=== PATIENT | female | born 1990 | race Caucasian/White ===

== ENCOUNTER 2017-07-29 05:55 | Inpatient (IN) ==
[2017-07-29] MEDS ORDERED: MAG-AL + SIM ORAL LIQUID 30ml PO PRN (06:25)
[2017-07-29] MEDS ORDERED: LIDOCAINE 1% (10mg/ml) 2mL INJ PF SDV ID PRN (06:25)
[2017-07-29] MEDS ORDERED: CARBOPROST 250 MCG/ML INJECTION IM PRN (06:25)
[2017-07-29] MEDS ORDERED: ACETAMINOPHEN 500 MG TABLET PO PRN (06:25)
[2017-07-29] MEDS ORDERED: CALCIUM CARBONATE Chewable 500mg TABLET PO PRN (06:25)
[2017-07-29] MEDS ORDERED: METHYLERGONOVINE 0.2 MG/ML INJECTION IM PRN (06:25)
[2017-07-29] MEDS: LR 1,000 ML IV PRN ×3 (06:54→18:36)
[2017-07-29 07:31] VITALS: BMI 28.5
[2017-07-29] MEDS ORDERED: OXYTOCIN DRIP 30 UNIT/500 ML ML IV PRN (08:44)
[2017-07-29] MEDS: D5LR 1,000 ML IV PRN ×2 (08:58→17:51)
[2017-07-29] MEDS ORDERED: NALOXONE 0.4 MG/ML INJECTION IVP PRN (10:31)
[2017-07-29] MEDS ORDERED: ONDANSETRON 4 MG/2 ML INJECTION IVP PRN ×2 (10:31→20:10)
[2017-07-29] MEDS ORDERED: DiphenhydrAMINE 50 MG/ML INJECTION IVP PRN (10:31)
[2017-07-29] MEDS ORDERED: ROPIVACAINE 1% 10MG/ML INJ 200 MG, SUFentanil 50 MCG in NS 100 ML EPI PRN (10:31)
--- NOTE | 2017-07-29 10:31 | Anesthesia Preoperative Report ---
Anesthesia Epidural/Spinal Rec - Date and Time Date: 07/29/17 Preoperative Diagnosis: g1, p0, 41+4 weeks labor Procedure: Labor Epidural Plan: Epidural - Vital Signs Vital Signs: Temperature 97.8 F 07/29/17 06:57 Pulse Rate 91 07/29/17 06:57 Respiratory Rate 18 07/29/17 06:57 Blood Pressure 131/87 07/29/17 06:57 NPO since: mn /Para: P:0 Heart Rate: 135 - Medictaions & Allergies Inpatient Medications: Current Medications Acetaminophen (Tylenol) 500 - 1,000 mg PO Q4H PRN PRN Reason: Pain Al Hydroxide/Mg Hydroxide (Maalox Plus) 30 ml PO Q3H PRN PRN Reason: Indigestion Calcium Carbonate (Tums) 500 - 1,000 mg PO Q2H PRN PRN Reason: Indigestion Carboprost Tromethamine (Hemabate) 250 mcg IM O PRN PRN Reason: .Downtime Lactated Ringer's (Lactated Ringers) 1,000 mls @ 999 mls/hr IV .Q1H1M PRN Last Admin: 07/29/17 08:59 Dose: 999 mls/hr Dextrose/Lactated Ringer's (Dextrose 5%-Lactated Ringers) 1,000 mls @ 125 mls/ hr IV .Q8H PRN PRN Reason: Labor Last Admin: 07/29/17 08:58 Dose: 125 mls/hr Oxytocin (Pitocin Drip) 30 unit in 500 mls @ 2 mls/hr IV .Q24H PRN; Protocol PRN Reason: Induction/Augmentation Last Admin: 07/29/17 08:57 Dose: 2 mls/hr Lidocaine HCl (Xylocaine-Mpf 1% Vial) 0.2 mg ID O PRN PRN Reason: IV Start Methylergonovine Maleate (Methergine) 0.2 mg IM O PRN Misoprostol (Cytotec) 800 mcg IA ONCE PRN Allergies/Adverse Reactions: Allergies Allergy/AdvReac Type Severity Reaction Status Date / Time No Known Allergies Allergy Verified 06/27/17 14:19 - Home Medications Home Medications: Home Medications Medication Instructions Recorded Confirmed Type Vitamins DAILY 07/29/17 History - Medical History Gastrointestional: Reports: Gastroesophageal Reflux Disease ( induced) Neuro/Musculoskeletal: Reports: Depression (no current meds) Other History: Reports: Now - Surgical History HEENT Surgeries: Reports: Oral Surgery (broken jaw) Anesthesia Reactions: None Hx Family Anesthesia Reaction: No - Social History Smoking Status: Never smoker Second Hand Exposure: No Substance Use Type: does not use Alcohol Intake Frequency: does not drink Hx Chewing Tobacco Use: No - Pertinent Findings Lab Data: CBC and BMP 07/29/17 06:43 - Physical Exam Respiratory Exam: lungs clear, bilateral breath sounds equal Cardiovascular Exam: regular rate and rhythm, no murmur - Airway Assessment Mallampati Score: III TMD: 3 Fingerbreadths Neck Extension: fair Overall Assessment: may be difficult intubation (jaw surgery ) - ASA ASA Score: 2 - Discussion Discussion: Discussed risks/options/alternatives of anesthesia and questions answered. Patient consents. Nursing pain assessment noted. Attestation Statement: Prior to the delivery of any anesthetic medication, I examined the patient, developed the plan, obtained the patient's consent and discussed the risk and benefits of the procedure with the patient/guardian.
[2017-07-29] MEDS ORDERED: CEFAZOLIN 1 G INJECTION IVP ONE (19:03)
[2017-07-29] MEDS ORDERED: CITRIC ACID/SODIUM CITRATE 30ml PO ONE (19:03)
[2017-07-29] MEDS ORDERED: FAMOTIDINE PB 20 MG/50 ML BAG IV ONE (19:03)
[2017-07-29] MEDS ORDERED: AZITHROMYCIN IV 500 MG in NS 250ml 250 ML IV ONE (19:04)
[2017-07-29] MEDS: NOZIN NASAL SWAB NAS SCH (19:17)
[2017-07-29] MEDS ORDERED: FentaNYL 100 MCG/2 ML INJECTION ONE (19:27)
[2017-07-29] MEDS ORDERED: MORPHINE SULFATE PF 5mg/10ml INJ (Duramorph) ONE (19:27)
[2017-07-29] MEDS ORDERED: EPHEDRINE 50mg/ml INJECTION ONE (19:28)
[2017-07-29] MEDS ORDERED: LIDOCAINE 2%/EPI 1:200,000 20ml SDV PF ONE (19:28)
[2017-07-29] MEDS: CLINDAMYCIN PB 900 MG/50 ML BAG IV SCH (19:40)
[2017-07-29] MEDS ORDERED: GENTAMICIN PB 120 MG/100 ML BAG IV ONE (19:43)
[2017-07-29] MEDS ORDERED: GENTAMICIN - PHARMACY CONSULT MC ONE (19:45)
[2017-07-29] MEDS ORDERED: ONDANSETRON 4 MG/2 ML INJECTION ONE (19:50)
--- NOTE | 2017-07-29 20:09 | Anesthesia Preoperative Report ---
Anesthesia Preoperative Record - Date and Time Date: 07/29/17 Preoperative Diagnosis: Labor failure to progress Proposed Procedure: emergency csection NPO Since Date: 07/28/17 NPO Since Time: 23:00 Allergies/Adverse Reactions: Allergies Allergy/AdvReac Type Severity Reaction Status Date / Time No Known Allergies Allergy Verified 06/27/17 14:19 - Vital Signs Vital Signs: Temperature 97.8 F 07/29/17 06:57 Pulse Rate 91 07/29/17 06:57 Respiratory Rate 18 07/29/17 06:57 Blood Pressure 131/87 07/29/17 06:57 Height and Weight: Height 1.63 m Weight 75.3 kg Body Mass Index 28.5 - Medications Inpatient Medications: Current Medications Acetaminophen (Tylenol) 500 - 1,000 mg PO Q4H PRN PRN Reason: Pain Al Hydroxide/Mg Hydroxide (Maalox Plus) 30 ml PO Q3H PRN PRN Reason: Indigestion Calcium Carbonate (Tums) 500 - 1,000 mg PO Q2H PRN PRN Reason: Indigestion Carboprost Tromethamine (Hemabate) 250 mcg IM O PRN PRN Reason: .Downtime Cefazolin Sodium (Kefzol) 1 g IVP PREOP ONE Stop: 07/29/17 19:04 Last Admin: 07/29/17 19:11 Dose: 1 g Citric Acid/Sodium Citrate (Oracit) 30 ml PO ONCE ONE Stop: 07/29/17 19:04 Last Admin: 07/29/17 19:09 Dose: 30 ml Diphenhydramine HCl (Benadryl) 25 - 50 mg IVP Q3H PRN PRN Reason: Itching Gentamicin Sulfate (Pharmacy Consult - Gentamicin) 1 each MC O ONE Stop: 07/29/17 19:46 Lactated Ringer's (Lactated Ringers) 1,000 mls @ 999 mls/hr IV .Q1H1M PRN Last Admin: 07/29/17 18:36 Dose: 999 mls/hr Dextrose/Lactated Ringer's (Dextrose 5%-Lactated Ringers) 1,000 mls @ 125 mls/ hr IV .Q8H PRN PRN Reason: Labor Last Admin: 07/29/17 17:51 Dose: 125 mls/hr Oxytocin (Pitocin Drip) 30 unit in 500 mls @ 2 mls/hr IV .Q24H PRN; Protocol PRN Reason: Induction/Augmentation Last Admin: 07/29/17 08:57 Dose: 2 mls/hr Ropivacaine 200 mg/ Sufentanil Citrate 50 mcg/ Sodium Chloride 121 mls @ 0 mls/ hr EPI PRN PRN; As Directed PRN Reason: Protocol Famotidine/Sodium Chloride (Pepcid Premix) 20 mg in 50 mls @ 100 mls/hr IV O ONE Stop: 07/29/17 19:32 Last Admin: 07/29/17 19:09 Dose: 100 mls/hr Azithromycin 500 mg/ Sodium (Chloride) 250 mls @ 250 mls/hr IV O ONE Stop: 07/29/17 20:03 Last Admin: 07/29/17 19:27 Dose: 250 mls/hr Clindamycin Phosphate (Cleocin Premix) 900 mg in 50 mls @ 50 mls/hr IV Q8H NEVIN Gentamicin Sulfate/Sodium Chloride (Garamycin Premix) 120 mg in 100 mls @ 200 mls/hr IV PREOP ONE Stop: 07/29/17 20:12 Isopropyl Alcohol (Nozin Nasal Swab) 1 each KRISTAL 0600,1400,2200 NEVIN Last Admin: 07/29/17 19:17 Dose: 1 each Lidocaine HCl (Xylocaine-Mpf 1% Vial) 0.2 mg ID O PRN PRN Reason: IV Start Methylergonovine Maleate (Methergine) 0.2 mg IM O PRN Misoprostol (Cytotec) 800 mcg ME ONCE PRN Naloxone HCl (Narcan) 0.1 mg IVP Q2M PRN PRN Reason: Respiratory distress Ondansetron HCl (Zofran) 4 mg IVP Q6H PRN PRN Reason: Nausea &/or vomiting Home Medications: Home Medications Medication Instructions Recorded Confirmed Type Vitamins DAILY 07/29/17 History Is Patient on Beta Leonel?: No - Medical History Gastrointestional: Reports: Gastroesophageal Reflux Disease ( induced) Neuro/Musculoskeletal: Reports: Depression (no current meds) Other History: Reports: Now - Surgical History HEENT Surgeries: Reports: Oral Surgery (broken jaw) Anesthesia Reactions: None Hx Family Anesthesia Reaction: No - Social History Smoking Status: Never smoker Hx Chewing Tobacco Use: No Second Hand Exposure: No Substance Use Type: does not use Alcohol Intake Frequency: does not drink - Pertinent Findings Laboratory: CBC and BMP 07/29/17 06:43 - Physical Exam Respiratory Exam: Present: lungs clear, bilateral breath sounds equal Cardiovascular Exam: Present: regular rate and rhythm, no murmur - Airway Assessment Mallampati Score: III TMD: 3 Fingerbreadths Neck Extension: fair Overall Assessment: may be difficult intubation (jaw surgery ) - ASA ASA Score: 2 - Plan Regional/Trunk Block: Epidural (labor converted to surgical) - Discussion Discussion: Discussed risks/options/alternatives of anesthesia and questions answered. Patient consents. Nursing pain assessment noted. Attestation Statement: Prior to the delivery of any anesthetic medication, I examined the patient, developed the plan, obtained the patient's consent and discussed the risk and benefits of the procedure with the patient/guardian. - Additional Information Seen by Anesthesia: Yes
[2017-07-29] MEDS ORDERED: METOCLOPRAMIDE 10mg/2ml INJECTION IVP PRN (20:10)
[2017-07-29] MEDS ORDERED: NALOXONE 2 MG/2 ML INJECTION PFS IVP PRN (20:10)
[2017-07-29] MEDS ORDERED: NALBUPHINE 10 MG/ML INJECTION IVP PRN (20:10)
[2017-07-29] MEDS ORDERED: DiphenhydrAMINE 25 MG CAPSULE PO PRN (20:38)
[2017-07-29] MEDS ORDERED: HYDROCORTISONE 2.5% CREAM 30gm RECTALLY PRN (20:38)
[2017-07-29] MEDS ORDERED: SIMETHICONE 80 MG CHEWABLE TABLET PO PRN (20:38)
[2017-07-29] MEDS ORDERED: OXYTOCIN DRIP 30 UNIT/500 ML ML IV SCH (20:45)
[2017-07-29] MEDS ORDERED: TRANEXAMIC ACID 1,000 MG in NS 100 ML IV ONE (20:49)
[2017-07-29] MEDS: IBUPROFEN 800 MG TABLET PO PRN (22:13)
[2017-07-29] MEDS: SIMETHICONE 80 MG CHEWABLE TABLET PO SCH (23:41)
[2017-07-29] MEDS: D5LR 1,000 ML IV SCH (23:42)
[2017-07-30] MEDS: NOZIN NASAL SWAB NAS SCH ×4 (00:42→21:25)
[2017-07-30] MEDS: HYDROCODONE/APAP 5mg/325mg TABLET PO PRN ×4 (01:23→21:25)
[2017-07-30] MEDS ORDERED: CEFAZOLIN 1 G in NS 100 ML IV SCH ×2 (03:00→11:00)
[2017-07-30] MEDS: CLINDAMYCIN PB 900 MG/50 ML BAG IV SCH (03:47)
[2017-07-30] MEDS ORDERED: GENTAMICIN 120 MG in NS 100 ML IV SCH ×2 (04:15→13:00)
--- NOTE | 2017-07-30 08:46 | Anesthesia Postoperative Note ---
- Date and Time Date: 07/30/17 Time: 08:40 - Status Patient Participated in Evaluation: Patient Participated by Phone Vital Signs: Temperature 98.1 F 07/30/17 03:51 Pulse Rate 85 07/30/17 03:51 Respiratory Rate 16 07/30/17 03:51 Blood Pressure 123/69 07/30/17 03:51 Pulse Oximetry 95 07/30/17 03:51 Respiratory Function: Airway Patent Cardiovascular Function: Regular Pulse EKG: Sinus Rhythm Mental Status: Alert and Oriented Pain Intensity: 3 Hydration: Taking PO Fluids Complications During Recover: None Apparent - Follow-Up Instructions Instructions: Per Surgeon
[2017-07-30] MEDS: D5LR 1,000 ML IV SCH (08:50)
[2017-07-30] MEDS: IBUPROFEN 800 MG TABLET PO PRN ×2 (08:56→17:59)
[2017-07-30] MEDS: SIMETHICONE 80 MG CHEWABLE TABLET PO SCH ×4 (08:56→21:25)
[2017-07-30] MEDS: DOCUSATE CALCIUM 240 MG CAPSULE PO SCH (08:56)
--- NOTE | 2017-07-30 09:52 | OB/GYN Progress Note ---
OB-PP Progress Note - General PPD1 Maternal Group B Strep: Negative Maternal blood type: B+ Maternal Rubella Status: Immune - Subjective Date: 07/30/17 Lochia: Minimal Pain: controlled Voiding: arroyo still in place Nausea or Vomiting Present: No - Objective Vital Signs: Last Vital Signs Temp 97.8 F 07/30/17 07:51 Pulse 83 07/30/17 07:51 Resp 20 07/30/17 07:51 BP 128/70 07/30/17 07:51 Pulse Ox 100 07/30/17 07:51 T max 100.5. Afebrile since 2039 last PM. Urine Output: good General: alert and oriented Abdomen: fundus firm, non-tender, soft, non-distended Incision: clean, no erythema, dry, intact Extremities: non-tender Laboratory: Laboratory Results - last 24 hr 07/30/17 00:41 WBC 18.7 H D RBC 3.82 L Hgb 10.9 L Hct 32.6 L MCV 85.3 MCH 28.5 MCHC 33.4 RDW Std Deviation 37.6 Plt Count 180 MPV 11.0 - Assessment Assessment: Primary C/S, Chorioamnionitis - Plan Plan: routine care, antibiotics (Until afeb for 24 hours.)
--- NOTE | 2017-07-30 10:28 | Operative Note ---
DATE: 07/29/2017 PREOPERATIVE DIAGNOSES 1. 27-year-old 1 at 41 weeks 4 days gestational age. 2. Arrest of dilation and descent. 3. Chorioamnionitis. POSTOPERATIVE DIAGNOSES 1. 27-year-old 1 at 41 weeks 4 days gestational age. 2. Arrest of dilation and descent. 3. Chorioamnionitis. 4. Mild uterine atony. PROCEDURE: Primary low transverse section. SURGEON: Dr. Abby Garcia MATERIAL CONTROL ASSOCIATE: Dr. Jackson Brewer ANESTHESIA: Epidural by Mao Sanchez CRNA. COMPLICATIONS: None. EBL: 800 mL FINDINGS Viable female , cephalic, OP position, clear fluids, Apgars 8/9, weight 3874 grams, name "Cherri". Nuchal cord x1. Normal-appearing uterus, tubes and ovaries. INDICATIONS The patient presented to Maternal Child with spontaneous rupture of membranes. She did not change her cervix for a couple of hours so she was started on Pitocin. She received an epidural. I ruptured a forebag returning clear fluids. An IUPC was placed to document adequate contractions. Her cervix never dilated past 8 cm and zero station over 5 hours. Maternal temperature, maternal pulse and heart rate were all starting to increase so she was consented for a . After she was taken back to the operating room her temperature was found to be 100.5 so she was started on gentamycin and clindamycin in addition to the routine Kefzol and azithromycin. PROCEDURE The patient's epidural was brought up to adequate surgical levels. She already had a Nogueira catheter in place. Her IUPC was removed. She was prepared and draped in the normal sterile fashion. A Pfannenstiel skin incision was made and carried down to the fascia. The fascia was incised in the midline and extended laterally with the Simmons scissors. The fascia was elevated and the underlying rectus muscles were dissected off. The peritoneum was entered sharply and extended superiorly and inferiorly with good visualization of the bladder. The bladder blade was inserted. A bladder flap was created sharply and the bladder blade was reinserted. The lower ureter uterine segment was incised in a transverse fashion layer by layer with a scalpel and bluntly extended. The infant's head was delivered atraumatically. A nuchal cord x1 was reduced. The nose and mouth were suctioned. The cord was clamped and cut and the infant was handed to Dr. Erickson who was asked to attend due to the unscheduled procedure and chorioamnionitis. The placenta delivered spontaneously. The uterus was exteriorized and cleared of all clots and debris. The uterine incision was closed with running locked 0- Monocryl. A [id number] was placed on the right edge of the incision for hemostasis. The uterus was imbricated with 0-Monocryl. Her uterus was mildly atonic so she was given a dose of Methergine and tranexamic acid. The uterus was returned to the abdomen. The gutters were cleared of all clots and debris. Her uterine tone had improved. The peritoneum was closed with running 2-0 Vicryl. Hemostasis was obtained in the rectus muscles with the cautery. The fascia was closed with running 0-Vicryl. Hemostasis was obtained in the subcutaneous tissue with the cautery. The skin was closed with 4-0 Vicryl in a subcuticular manner. Steri-Strips were placed. Sponge, sharp and instrument counts were correct. The patient tolerated the procedure well and was taken to the recovery room in good condition. CHARO
[2017-07-30] MEDS: CLINDAMYCIN 300 MG CAPSULE PO SCH ×2 (11:20→19:28)
[2017-07-30] MEDS ORDERED: AMOX/CLAV 875 MG/125 MG TABLET PO ONE (12:00)
[2017-07-31] MEDS: IBUPROFEN 800 MG TABLET PO PRN ×3 (00:03→17:06)
[2017-07-31] MEDS: HYDROCODONE/APAP 5mg/325mg TABLET PO PRN ×4 (01:51→22:01)
[2017-07-31] MEDS: NOZIN NASAL SWAB NAS SCH ×2 (06:00→13:33)
[2017-07-31] MEDS: DOCUSATE CALCIUM 240 MG CAPSULE PO SCH (08:38)
[2017-07-31] MEDS: SIMETHICONE 80 MG CHEWABLE TABLET PO SCH ×5 (08:39→22:01)
--- NOTE | 2017-07-31 12:41 | OB/GYN Progress Note ---
OB-PP Progress Note - General POD:: POD2 Maternal Group B Strep: Negative Maternal blood type: B+ Maternal Rubella Status: Immune - Subjective Date: 07/31/17 Lochia: Minimal Pain: controlled Voiding: voiding Nausea or Vomiting Present: No - Objective Vital Signs: Last Vital Signs Temp 98.4 F 07/31/17 09:15 Pulse 80 07/31/17 09:15 Resp 18 07/31/17 09:15 BP 116/68 07/31/17 09:15 Pulse Ox 98 07/31/17 09:15 General: alert and oriented - Assessment Assessment: SP, Primary C/S - Plan Plan: routine care Expected date of discharge: 08/01/17
[2017-07-31 22:08] VITALS: RESP 16
[2017-08-01] MEDS: IBUPROFEN 800 MG TABLET PO PRN (02:03)
[2017-08-01] MEDS: HYDROCODONE/APAP 5mg/325mg TABLET PO PRN (06:57)
[2017-08-01 07:51] VITALS: BP 128/91; PULSE 86; TEMP 96.2; O2SAT 98
[2017-08-01] MEDS: DOCUSATE CALCIUM 240 MG CAPSULE PO SCH (08:43)
[2017-08-01] MEDS: SIMETHICONE 80 MG CHEWABLE TABLET PO SCH (08:43)
== END 2017-08-01 09:20 | disposition home or self-care (01) | DRG 765 ==
LOC: OBOBS 05:55 → MC 05:56
PROVIDERS: ADMIT Obstetrics & Gynecology; ATTEND Obstetrics & Gynecology